=== PATIENT | female | born 1980 | race Caucasian/White ===

== ENCOUNTER 2020-08-21 14:10 | Observation (INO) | payer BC, SELFPAY ==
--- NOTE | 2020-09-08 07:22 | PM.OBTRLD ---
OB - Triage/Final Diagnosis Visit Information Reason for evaluation: other (htn) Comments/Additional reasons for admission: I have assessed the risk for this patient, Bessie Elder, and determined that she would benefit from observation care.
== END 2020-08-21 16:25 | disposition home or self-care (01) ==
PROVIDERS: Admitting Provider Obstetrics & Gynecology; PCP Family Medicine; Visit Provider Obstetrics & Gynecology
DX: O16.3 Unspecified maternal hypertension, third trimester (principal); Z3A.38 38 weeks gestation of pregnancy
CPT/HCPCS: G0378; G0379

== ENCOUNTER 2020-08-27 04:59 | Inpatient (IN) | payer BC, SELFPAY ==
[2020-08-27] VITALS (120 sets, daily range): BP systolic 81–220; BP diastolic 44–193; PULSE 36–224; RESP 16–18; TEMP 36.2–37; O2SAT 77–100; BMI 23.1
--- NOTE | 2020-08-27 05:19 | LDADM ---
This patient, Bessie Elder, was admitted to Labor/Delivery/Recovery 104 on 08/27/20 at 04:59. Plans for labor, pain management and were discussed with patient. Patient/family oriented to hospital policies and general routines including ID bracelet, bed and alarms, visiting hours, pain management, procedures, bathroom and other care routines, personal items, smoking policy, room service/diet and guest tray routines, infant security routines, and visiting hours. Patient/Family are encouraged to report perceived risks to care and to ask questions if they do not understand what they are told or what they should do. See OBIX for further documentation.
[2020-08-27] MEDS: LACTATED RINGERS 1,000 ML 125 ML IV CONT (05:32)
[2020-08-27 05:36] LABS: Basophils Percent Auto 0.3 % (0.2-1.2); Eosinophils Absolute Auto 0.1 K/mm3 (0-0.3); Eosinophils Percent Auto 1.4 % (0-4.4); Hematocrit 32.7 % (37.0-47.0); Hemoglobin 10.6 g/dL (12.0-15.0); Immature Granulocyte Absolute 0.04 K/mm3 (0.00-0.031); Immature Granulocyte Percent A 0.5 % (0-0.5); Lymphocytes Absolute Auto 1.25 K/mm3 (0.9-3.2); Lymphocytes Percent Auto 16.9 % (18.3-44.2); Mean Corpuscular HGB Conc 32.4 g/dl (32-36); Mean Corpuscular Volume 89.3 fl (80-100); Mean Platelet Volume 9.9 fl (7.4-10.4); Monocytes Absolute Auto 0.7 K/mm3 (0.1-0.6); Monocytes Percent Auto 8.9 % (2.6-8.5); Neutrophils Absolute Auto 5.3 K/mm3 (1.3-6.7); Platelet Count Result 251 k/mm3 (150-375); Red Blood Count 3.66 M/mm3 (4.2-5.4); Red Cell Distribution Width 13.8 % (11.5-14.5); White Blood Count 7.4 K/mm3 (4.5-10.0)
[2020-08-27] MEDS: OXYTOCIN 30 UNITS/NS 500 ML 30 UNITS/500 ML BAG IV CONT (05:41)
--- NOTE | 2020-08-27 07:19 | WPDANESEPP ---
Anes - Eval Pre Procedure Procedure: labor epidural Date/Time: 08/27/20 07:19 Surgeon: janny Pre Op Diagnosis: Induction Patient Data Age: 39 Gender: F Height: 1.68 m Weight: 65 kg Last Vital Signs Temp 36.2 C L 08/27/20 05:16 Pulse 62 08/27/20 07:15 Resp 18 08/27/20 05:16 BP 139/94 H 08/27/20 07:15 Allergies Allergy/AdvReac Type Severity Reaction Status Date / Time No Known Allergies Verified 06/08/09 20:22 NKDA Allergy Unknown Uncoded 06/06/09 15:47 Home Medications Medication Instructions Recorded Confirmed Type ergocalciferol (vitamin D2) 50 mcg PO DAILY 08/27/20 08/27/20 History prenat.vits,micky,wnj-qvot-gcunt 1 tablet PO DAILY 08/27/20 08/27/20 History [ Vitamin] Laboratory Tests 08/27/20 08/27/20 05:21 05:21 WBC 7.4 K/mm3 K/mm3 (4.5-10.0) RBC 3.66 M/mm3 L M/mm3 (4.2-5.4) Hgb 10.6 g/dL L g/dL (12.0-15.0) Hct 32.7 % L % (37.0-47.0) MCV 89.3 fl fl (80-100) MCH 29.0 pg pg (26-34) MCHC 32.4 g/dl g/dl (32-36) RDW 13.8 % % (11.5-14.5) Plt Count 251 k/mm3 k/mm3 (150-375) MPV 9.9 fl fl (7.4-10.4) Immature Gran % (Auto) 0.5 % % (0-0.5) Neut % (Auto) 72.0 % % (45.5-73.1) Lymph % (Auto) 16.9 % L % (18.3-44.2) [place] % (Auto) 8.9 % H % (2.6-8.5) Eos % (Auto) 1.4 % % (0-4.4) Baso % (Auto) 0.3 % % (0.2-1.2) Lymph # (Auto) 1.25 K/mm3 K/mm3 (0.9-3.2) [place] # (Auto) 0.7 K/mm3 H K/mm3 (0.1-0.6) Eos # (Auto) 0.1 K/mm3 K/mm3 (0-0.3) Baso # (Auto) 0.0 K/mm3 K/mm3 (0.0-0.1) Abs Immat Gran (auto) 0.04 K/mm3 H K/mm3 (0.00-0.031) Absolute Neuts (auto) 5.3 K/mm3 K/mm3 (1.3-6.7) Absolute Nucleated RBC 0.0 K/mm3 K/mm3 (0.0-0.012) Nucleated RBC % 0.0 % % (0.0-0.2) RPR Pending Patient hx anesthesia problems: none Family hx anesthesia problems: none PMFSH Family History Family History Grandparent Family history of lung cancer Family history of malignant neoplasm of breast Mother Family history of malignant neoplasm of breast in first degree relative Social History Social History Smoking status: Former smoker Tobacco type: cigarettes Second hand tobacco smoke exposure: Yes Alcohol intake: never Substance use: never Gender identity (if verbalized by the patient): Female Spiritual care concerns: No Exam Day of Procedure 08/27/20 07:19
--- NOTE | 2020-08-27 07:41 | WPDHPUPDATE1 ---
History and Physical Update Update Date/Time: 08/27/20 07:41 39 yo at 39w6d who presents for elective IOL. Pt reports regular contractions. She endorses good movement. She denies any vaginal bleeding or leakage of fluid. Her has been uncomplicated thus far. History and Physical has been reviewed, including an updated exam of the patient. There are NO changes in the patient's condition. Risks, benefits, and alternatives have been discussed and questions answered. Patient agrees to proceed with procedure. A/P: 39 yo at 39w6d who presents for elective IOL admit to L&D routine admission orders Rh+ GBS neg FHT cat 1 regular ctx on toco cvx /-3 AROM, thin mec continuous EFM
--- NOTE | 2020-08-27 11:35 | P.PCNOB_ITS ---
OB - Delivery Note Procedure Procedure: Patient pushed for a spontaneous vaginal delivery. The fetus was delivered atraumatically and placed on the maternal abdomen. The cord was clamped and cut after 1 minute of life. The cord was double clamped and cut and a segment of cord was collected for cord gases. Cord blood was collected for blood type and Coomb's testing. The placenta delivered spontaneously and was noted to be intact. The perineum was inspected and there was a 2nd degree perineal laceration. The laceration was repaired with 2-0 vicryl in the usual fashion. The uterus was firm and good hemostasis was noted. The patient and fetus were stable in the delivery room. Intrapartal events: None Induction method: per pitocin protocol Delivery augmentation: rupture of membranes Delivery monitor: external FHT Route of delivery: Episiotomy description: None Laceration Description: Perineal - 2nd Degree Delivery repair: vicryl Specimen: No Quantitative Blood Loss (ml): 250 Anesthesia type: Epidural Disposition: floor () Complications: No immediate complications [place] [facility] Date of : 08/27/20 Time of : 11:22 Weeks of gestation at delivery: 39 gender: Female Weight (pounds): 6 Weight (ounces): 15 presentation: vertex position: Right Occiput Anterior Placenta delivery description: Spontaneous cord vessel description: Nuchal Cord score one minute: 8 score five minutes: 9
[2020-08-27] MEDS: OXYTOCIN 30 UNITS/NS 500 ML 30 UNITS/500 ML BAG 125 UNITS IV CONT (12:00)
[2020-08-27] MEDS: WITCH HAZEL 40 PADS 1 PAD TOPICAL (13:35)
[2020-08-27] MEDS: BENZOCAINE 20% AER SPR (*SP) 56 GM CAN 1 SPRAY TOPICAL (13:35)
[2020-08-27] MEDS: IBUPROFEN 600 MG TABLET PO (18:34)
[2020-08-28] MEDS: IBUPROFEN 600 MG TABLET PO ×3 (00:44→14:25)
[2020-08-28 05:11] LABS: Hematocrit 25.8 % (37.0-47.0); Hemoglobin 8.5 g/dL (12.0-15.0)
[2020-08-28 05:32] VITALS: BP 124/77; PULSE 70; RESP 16; TEMP 36.9
--- NOTE | 2020-08-28 07:02 | PM.OBDSVD ---
DS: Admitting Diagnosis Admitting Diagnosis Admitting Diagnosis: intrauterine at term OB - DS: Summary OB Procedures : None OB Procedures Intrapartum: Spontaneous Vag Delivery OB Procedures: : None Status at Discharge Functional status at discharge: independent ambulation Overall status at discharge: patient is back to baseline Time Spent with Patient Time attestation: Total time spent providing and/or coordinating discharge services: Time spent: Less than 30 minutes Exam Const: General: comfortable and no acute distress Resp: Effort & Inspection: normal respiratory effort Auscultation: clear to auscultation bilaterally Cardio: Rate: regular rate GI: GI Palp: Yes Soft to palpation Auscultation: normal bowel sounds Other: Fundus firm below umbilicus Psych: Appearance: grossly normal Mental Status: mental status grossly normal Affect: normal affect DS: Data Data Completed and Pending Labs on day of discharge: Labs from last 24 hours 08/28/20 08/27/20 04:31 05:21 Hgb 8.5 L Hct 25.8 L Blood Type O Positive Antibody Screen Negative Discharge Plan Discharge Discharging Clinician: Wojciech Barros Patient Disposition: Home, Self-Care Activity: may shower, as tolerated and pelvic rest Diet: regular Patient Instructions: Antibiotic Form, Vaginal Delivery (DC) Stand Alone Forms: General Discharge Information Follow-up/Referrals: Wojciech Barros MD [Physician] - 4 Weeks Discharge Medications: New ibuprofen 600 mg Tablet 600 mg PO Q6H PRN (Reason: Cramping) Qty: 30 RF: 0 polysaccharide iron complex 150 mg iron Capsule 150 mg PO BIDWM Qty: 90 RF: 0 acetaminophen [Mapap (acetaminophen)] 325 mg Tablet 650 mg PO Q6H PRN (Reason: Mild Pain (1-3) Or Headache) Qty: 30 RF: 0 Continued Vitamin Tablet 1 tablet PO DAILY RF: 0 Discontinued ergocalciferol (vitamin D2) 50 mcg (2,000 unit) Capsule 50 mcg PO DAILY RF: 0 Date of admission: 08/27/20 04:59 Primary Care Provider: Abdias Resendez Admitting Provider: Wojciech Barros Attending physician on admission: Wojciech Barros Condition: Stable
[2020-08-28] MEDS: DOCUSATE SODIUM 100 MG CAPSULE PO (07:34)
[2020-08-28] MEDS: POLYSACCHARIDE IRON COMPLEX 150 MG CAPSULE PO (07:34)
[2020-08-28 07:45] VITALS: BP 111/76; PULSE 66; RESP 16; TEMP 36.7; O2SAT 99
[2020-08-28 08:03] LABS: Rapid Plasma Reagin Non-Reactive (NonReactive)
--- NOTE | 2020-08-28 10:26 | WPDANLDPN2 ---
Anes-Prog Note L&D Date/Time: 08/28/20 10:26 Comfortable throughout: labor and delivery Neuraxial method: epidural Epidural/Spinal procedure site: clean & non-tender Neuro status: Neuro function grossly intact. Cardiovascular status: normal Respiratory status: normal Airway patency: baseline Mental status: baseline Post-Op hydration status: normal Vital Signs: Last Vital Signs Temp 36.7 C 08/28/20 07:45 Pulse 66 08/28/20 07:45 Resp 16 08/28/20 07:45 BP 111/76 08/28/20 07:45 Pulse Ox 99 08/28/20 07:45 Pain score (VAS): 5/10 Post-procedural complaints: other (Pt with complaint of constant Headache (frontal), and neck ache. No improvement with lying down. Plan to treat with conservative measures. Instructed to call anesthesia if headache worsens. Headache is manageable at this time.) Patient feedback: Patient satisfied with anesthetic care.
--- NOTE | 2020-08-28 14:09 | PC.NURSE ---
Patient viewed the discharge video Mother & Baby Care, The First Two Weeks . Patient was given the opportunity and encouraged to ask questions. Patient verbalized understanding of information shared and has been given the mother/baby guide for home reference.
[2020-08-29 07:54] VITALS: BP 140/88; PULSE 69; RESP 20; TEMP 36.6; O2SAT 99
== END 2020-08-28 15:45 | disposition home or self-care (01) | DRG 807 ==
LOC: ANHLDR 05:19 → ANHOB2 14:47
PROVIDERS: Admitting Provider Student in an Organized Health Care Education/Training Program; PCP Family Medicine; Visit Provider Student in an Organized Health Care Education/Training Program
DX: O69.81X0 Labor and delivery complicated by cord around neck, without compression, not applicable or unspecified (principal); Z37.0 Single live birth; O70.1 Second degree perineal laceration during delivery; Z3A.39 39 weeks gestation of pregnancy
CPT/HCPCS: 36415; 85014; 85018; 85025; 86592; 86850; 86900; 86901; A9270; J2590; J2795; J7120

== ENCOUNTER 2020-08-29 08:51 | Outpatient (CLI) | payer BC, SELFPAY ==
[2020-08-29] VITALS (12 sets, daily range): BP systolic 128–157; BP diastolic 78–99; PULSE 59–73; RESP 16–18; TEMP 36.4–36.6
--- NOTE | 2020-08-29 09:34 | PC.NURSE ---
Lili Bingham RAIL ENGINEER here to perform epidural blood patch. Pt assisted to dangle position with feet in bedside chair.
--- NOTE | 2020-08-29 09:42 | PC.NURSE ---
Epidural blood patch completed. Pt assisted to laying flat with foot of bed slightly raised. Side rails up x's 2. Call light within reach. Pt has liquids. Pt to lay flat for the next 30 mins.
--- NOTE | 2020-08-29 09:42 | P.PCNANE_ITS ---
Anes - Epidural Blood Patch PN Date/Time: 08/29/20 09:42 Consent: I have discussed with the patient/family/POA, the rationale of a lumbar epidural autologous blood patch for the treatment of post-dural puncture headache (spinal headache), including associated potential risks, benefits, comp lications and side effects. I have also discussed more conservative treatment options such as intravenous hydration, caffeine and non-prescription analgesics. The patient/family/POA, understand(s) and wish(es) to proceed with epidural autologous blood patch as treatment for the patient's post-dural puncture headache. Time-Out: A pre-procedural Time-Out was completed immediately before starting the procedure and confirmed: Patient Identification, Site, Procedure, Patient Position and the Availability of Requisite Equipment. Clinical Indications: Pt presents today from home with 8-9/10 headache. Mostly frontal, radiating into temples with achy Pain to posterior neck and bilateral shoulders. Improves with lying flat and lights out. Pt requests epidural blood patch. Epidural Insertion Note Patient position: sitting Skin prep: chlorhexidine and sterile drape Needle: 18 gauge Tuohy-Schliff Technique: loss of resistance Skin anesthesia: lidocaine 1% Observations: tolerated well (Headache rated 1/10 post procedure) Complications: none and other (18 ml blood drawn sterilely from left AC per Dulce Maria Marc RN and injected easily to EDS. VSS throughout. )
--- NOTE | 2020-08-29 10:06 | PC.NURSE ---
Lili Bingham IRONWORKER APPRENTICE back in to see pt. Headache has resolved. Still has some neck pain/muscle soreness with movement. HOB slowly elevated.
--- NOTE | 2020-08-29 10:18 | PC.NURSE ---
HOB elevated more.
--- NOTE | 2020-08-29 10:56 | PC.NURSE ---
Dr. Barros informed BP's remain elevated even as pt's headache has decreased. Orders received.
[2020-08-29] MEDS: IBUPROFEN 600 MG TABLET PO (11:14)
[2020-08-29 11:24] LABS: Hematocrit 32.5 % (37.0-47.0); Hemoglobin 10.8 g/dL (12.0-15.0); Mean Corpuscular HGB Conc 33.2 g/dl (32-36); Mean Corpuscular Hemoglobin 29.5 pg (26-34); Mean Corpuscular Volume 88.8 fl (80-100); Platelet Count Result 239 k/mm3 (150-375); Red Blood Count 3.66 M/mm3 (4.2-5.4); Red Cell Distribution Width 13.9 % (11.5-14.5); White Blood Count 8.1 K/mm3 (4.5-10.0)
[2020-08-29 11:34] LABS: Alanine Aminotransferase 15 U/L (4-35); Albumin Level 3.3 g/dL (3.5-5.1); Alkaline Phosphatase 118 U/L (38-126); Anion Gap 5 mmol/L (8-16); Aspartate Amino Transferase 32 U/L (14-36); Bilirubin,Total 0.2 mg/dL (0.2-1.3); Blood Urea Nitrogen 4 mg/dL (7-17); Calcium 9.1 mg/dL (8.4-10.2); Carbon Dioxide 25 mmol/L (22-30); Chloride 109 mmol/L (98-107); Estimated Glomerular Filt Rate > 60; Glucose 98 mg/dL (65-105); Potassium 3.9 mmol/L (3.4-5.0); Sodium 139 mmol/L (137-145); Uric Acid 3.2 mg/dL (2.5-7.5)
--- NOTE | 2020-08-29 12:04 | PC.NURSE ---
Dr. Barros on unit and informed lab results and additional BP's. OK to discharge- to be seen in office next week for BP check.
== END 2020-08-29 12:17 | disposition home or self-care (01) ==
LOC: ANHOBOP 08:53 → ANHOBPP 08:58
PROVIDERS: PCP Family Medicine; Visit Provider Student in an Organized Health Care Education/Training Program
DX: R51.9 Headache, unspecified (principal)
CPT/HCPCS: 36415; 80053; 84550; 85027; 99199; A9270

== ENCOUNTER 2021-10-13 08:15 | Outpatient (CLI) | payer OTHER, SELFPAY ==
[2021-10-15 15:01] LABS: NIL 0.01 IU/mL; Quantiferon TB Plus, 1T NEGATIVE (NEGATIVE)
== END 2021-10-13 08:16 | disposition home or self-care (01) ==
LOC: ANHGOSHLAB 08:18
PROVIDERS: PCP Family Medicine; Visit Provider Family Medicine
DX: Z02.1 Encounter for pre-employment examination (principal)
CPT/HCPCS: 36415; 86480